=== PATIENT | male | born 1950 | race Asian ===

== ENCOUNTER 2019-02-08 05:29 | Day surgery (SDC) | payer MEDICARE, OTHER ==
--- NOTE | 2019-02-07 19:31 | Pre-op HX & Phy Repo 2 SIG ---
DATE OF ADMISSION: 02/08/2019 DATE OF SURGERY: February 08, 2019. PREOPERATIVE DIAGNOSIS: Dislocated intraocular lens, capsular complex, left eye. PROCEDURE TO BE PERFORMED: 1. Pars plana vitrectomy. 2. Reposition or removal and replacement of dislocated intraocular lens, left eye. BRIEF NOTE: This is a first [facility] admission for the patient who is a very nice 68-year-old gentleman with a dislocated lens in the left eye. He underwent cataract surgery on that side in 2008 with reasonably good vision. He noted blurred vision for roughly the last 6 weeks and was found to have a dislocation. He has a cataract on the right eye which has not been operated. PAST MEDICAL HISTORY: Remarkable for possible arthritis. He states that he is otherwise healthy. He had a colon resection in 2008 and this has been stable. MEDICATIONS: Celecoxib, atorvastatin, and gabapentin. ALLERGIES: He has no known allergies. PHYSICAL EXAMINATION: Best vision time of the visit was 20/30 -1 in the right eye and hand motions in the left with pressures of 16. The anterior segment exam of the right eye showed a cortical opacity and nuclear sclerotic cataract. The left eye showed a dislocated intraocular lens capsular complex. The lens was in the inferior 20% of the pupil. The zonular fibers were poorly supportive. Funduscopic exam of the right eye showed a posterior vitreous detachment. The left fundus showed a posterior vitreous separation. The retina nerve appeared benign. General physical examination will be performed by Dr. Mayer on arrival. ASSESSMENT: Dislocated intraocular lens, left eye. PLAN: The plan is to perform a pars plana vitrectomy with the reposition or removal and replacement of the lens. The risks and benefits of surgery gone over the patient with potential for infection, retinal detachment, glaucoma, remote possibility of loss of the eye. The risk of anesthesia was discussed. The patient understands and consents to the surgery, which will be performed on tomorrow morning. Bulmaro Chu M.D. DR: Anh JOB#: [id number] CC: BLANCHE
[2019-02-08] VITALS (11 sets, daily range): BP systolic 116–137; BP diastolic 65–86
[~2019-02-08] VITALS: Ht 168 cm; Wt 79.4 kg
[2019-02-08] MEDS ORDERED: Pred Forte 1% Opth Susp 1ml LEFT EYE SCH (06:00)
[2019-02-08] MEDS: Flurbiprofen 0.03% Opth Sol 2.5ml LEFT EYE SCH ×3 (06:18→06:45)
[2019-02-08] MEDS: Cyclopentolate 1% Opth Sol 2ml LEFT EYE SCH ×3 (06:18→06:44)
[2019-02-08] MEDS: Vigamox Opth Soln 3ml LEFT EYE SCH ×3 (06:18→06:45)
[2019-02-08] MEDS: Phenylephrine 2.5% Op 2ml Soln LEFT EYE SCH ×3 (06:18→06:44)
[2019-02-08] MEDS ORDERED: LEVETIRACETAM750 M1 ORAL (06:33)
[2019-02-08] MEDS ORDERED: AMLODIPINE BESY10 MG ORAL (06:33)
[2019-02-08] MEDS ORDERED: GABAPENTIN600 MG ORAL (06:33)
[2019-02-08] MEDS ORDERED: VASCEPA1 GM PO (06:33)
[2019-02-08] MEDS ORDERED: ATORVASTATIN CA20 MG ORAL (06:33)
[2019-02-08] MEDS ORDERED: CELEBREX200 MG ORAL (06:33)
[2019-02-08 06:37] LABS: ANION GAP 13 mmol/L (5-15); BLOOD UREA NITROGEN 12 mg/dL (7-18); CALCIUM 9.3 MG/DL (8.5-10.1); CARBON DIOXIDE 22 MMOL/L (21-32); CHLORIDE 104 MMOL/L (98-107); CREATININE 1.1 MG/DL (0.55-1.30); POTASSIUM 3.4 MMOL/L (3.5-5.1); SODIUM 139 MMOL/L (136-145)
[2019-02-08] MEDS ORDERED: Lidocaine 2% MPF 5ml Vial INJ ONE (07:12)
[2019-02-08] MEDS ORDERED: Kenalog-40 1ml Vial ONE (07:12)
[2019-02-08] MEDS ORDERED: Maxitrol Opth Oint 3.5gm ONE (07:12)
[2019-02-08] MEDS ORDERED: EPINEPHrine 1mg/1ml Amp ONE (07:12)
[2019-02-08] MEDS ORDERED: BSS 15ml BTL ONE ×3 (07:13→09:43)
[2019-02-08] MEDS ORDERED: Povidone-Iodine 5% opth solution ONE (07:13)
[2019-02-08] MEDS ORDERED: Dexamethasone 4mg/ml vial ONE (07:13)
[2019-02-08] MEDS ORDERED: BSS 500ml btl ONE (07:13)
[2019-02-08] MEDS ORDERED: Kenalog-10 5ml Inj ONE (07:13)
[2019-02-08] MEDS ORDERED: Tetracaine 0.5% Opth 4ml Soln ONE (07:14)
[2019-02-08] MEDS ORDERED: Sodium Hyaluronate 10 mg/ml 0.85ml ONE (07:14)
[2019-02-08] MEDS ORDERED: Bupivacaine 0.75% 30ml vial INJ ONE (07:14)
[2019-02-08] MEDS ORDERED: Midazolam 2mg/2ml Inj ONE (07:17)
[2019-02-08] MEDS ORDERED: Propofol 200mg/20ml IV ONE ×3 (07:17→10:25)
[2019-02-08 07:18] LABS: BASOPHILS % (AUTO) 1.3 % (0.0-2.0); HEMATOCRIT 42.8 % (42.0-52.0); HEMOGLOBIN 14.6 G/DL (14.2-18.0); LYMPHOCYTES % (AUTO) 42.6 % (20.0-45.0); MEAN CORPUSCULAR VOLUME 84 FL (80-99); NEUTROPHILS % (AUTO) 39.2 % (45.0-75.0); PLATELET COUNT 266 K/UL (150-450); RED BLOOD COUNT 5.08 M/UL (4.70-6.10); RED CELL DISTRIBUTION WIDTH 14.9 % (11.6-14.8); WHITE BLOOD COUNT 3.8 K/UL (4.8-10.8)
[2019-02-08] MEDS ORDERED: Sterile Water Irrig 1000ml IRRIG ONE (07:30)
[2019-02-08] MEDS ORDERED: fentaNYL 100 mcg/2 mL IV ONE (07:30)
[2019-02-08] MEDS ORDERED: LR 1000ml ONE (07:30)
[2019-02-08] MEDS ORDERED: NS Irrig 1000ml ONE (07:30)
--- NOTE | 2019-02-08 07:33 | Anethesia Preoperative Eval ---
Anesthesia Pre-op PMH/ROS General Date of Evaluation: Feb 08, 2019 Time of Evaluation: 07:30 Anesthesiologist: Tera ASA Score: ASA 2 Mallampati Score Class I : Soft palate, uvula, fauces, pillars visible Class II: Soft palate, uvula, fauces visible Class III: Soft palate, base of uvula visible Class IV: Only hard plate visible Mallampati Classification: Class II Surgeon: Vlad Diagnosis: Dislocated IOL L eye Surgical Procedure: L eye PPV Anesthesia History: none Family History: no anesthesia problems Allergies: Coded Allergies: IODINE (Verified Allergy, Unknown, 02/07/19) Uncoded Allergies: IV CONTRAST (Allergy, Unknown, 02/07/19) Medications: see eMAR Patient NPO?: Yes Past Medical History Cardiovascular: Reports: HTN; Denies: CAD, VA, valve dz, arrhythmia, other Gastrointestinal/Genitourinary: Reports: GERD; Denies: CRI, ESRD, other Neurologic/Psychiatric: Denies: dementia, CVA, depression/anxiety, TIA, other Endocrine: 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 Exam Physician Exam Last Vital Signs Date Time Temp Pulse Resp B/P (MAP) Pulse Ox O2 Delivery O2 Flow Rate FiO2 02/08/19 06:42 Room Air 02/08/19 06:28 98.0 65 18 128/86 96 Constitutional: NAD Neurologic: CN 2-12 intact Cardiovascular: RRR, no M/R/G Respiratory: CTA Gastrointestinal: S/NT/ND Airway Exam Mallampati Score: Class II MO: full Neck: stiff ROM: limited Teeth: missing Dentures: no upper, no lower Anesthesia Pre-op A/P Labs Hematology Test 02/08/19 06:00 White Blood Count 3.8 K/UL (4.8-10.8) L Red Blood Count 5.08 M/UL (4.70-6.10) Hemoglobin 14.6 G/DL (14.2-18.0) Hematocrit 42.8 % (42.0-52.0) Mean Corpuscular Volume 84 FL (80-99) Mean Corpuscular Hemoglobin 28.8 PG (27.0-31.0) Mean Corpuscular Hemoglobin Concent 34.2 G/DL (32.0-36.0) Red Cell Distribution Width 14.9 % (11.6-14.8) H Platelet Count 266 K/UL (150-450) Mean Platelet Volume 5.2 FL (6.5-10.1) L Neutrophils (%) (Auto) 39.2 % (45.0-75.0) L Lymphocytes (%) (Auto) 42.6 % (20.0-45.0) Monocytes (%) (Auto) 14.0 % (1.0-10.0) H Eosinophils (%) (Auto) 3.0 % (0.0-3.0) Basophils (%) (Auto) 1.3 % (0.0-2.0) Chemistry Test 02/08/19 06:00 Sodium Level 139 MMOL/L (136-145) Potassium Level 3.4 MMOL/L (3.5-5.1) L Chloride Level 104 MMOL/L (98-107) Carbon Dioxide Level 22 MMOL/L (21-32) Anion Gap 13 mmol/L (5-15) Blood Urea Nitrogen 12 mg/dL (7-18) Creatinine 1.1 MG/DL (0.55-1.30) Estimat Glomerular Filtration Rate > 60 mL/min (>60) Glucose Level 117 MG/DL (74-106) H Calcium Level 9.3 MG/DL (8.5-10.1) Risk Assessment & Plan Assessment: ASA 2 Plan: MAC with retrobulbar block Status Change Before Surgery: No Pre-Antibiotics Drug: none Mundo Haley MD Feb 08, 2019 07:33
--- NOTE | 2019-02-08 07:53 | Pre-Procedure Note/Attestation ---
Pre-Procedure Note/Attestation Complete Prior to Procedure Planned Procedure: left Procedure Narrative: PPV, removal of dislocated IOL, insertion of posterior chamber lens LEFT eye Indications for Procedure Pre-Operative Diagnosis: Loss of vision LEFT eye Attestation I attest that I discussed the nature of the procedure; its benefits; risks and complications; and alternatives (and the risks and benefits of such alternatives ), prior to the procedure, with the patient (or the patient's legal quality audit representative). I attest that, if there was a reasonable possibility of needing a blood transfusion, the patient (or the patient's legal quality audit representative) was given the [facility] standardized written summary, pursuant to the [place] Blood Safety Act ([place] Health and Safety Code # 1645, as amended). I attest that I re-evaluated the patient just prior to the surgery and that there has been no change in the patient's H&P, except as documented below: Bulmaro Chu MD Feb 08, 2019 07:53
[2019-02-08] MEDS ORDERED: LR 1000ml 1,000 ML IVLG SCH (08:27)
[2019-02-08] MEDS ORDERED: DiphenhydrAMINE 50mg/ml Inj IVP PRN (08:30)
[2019-02-08] MEDS ORDERED: fentaNYL 100 mcg/2 mL IV PRN (08:30)
[2019-02-08] MEDS ORDERED: Carbachol 0.01% Op Soln 1.5ml vial ONE (08:36)
--- NOTE | 2019-02-08 10:15 | Immediate Post-Op Evaluation ---
Immediate Post-Op Evalulation Immediate Post-Op Evalulation Procedure: L eye PPV removal and replacement of dyslocated IOL Date of Evaluation: Feb 08, 2019 Time of Evaluation: 10:14 IV Fluids: 600 Blood Products: none Estimated Blood Loss: min Urinary Output: none Blood Pressure Systolic: 126 Blood Pressure Diastolic: 83 Pulse Rate: 67 Respiratory Rate: 20 O2 Sat by Pulse Oximetry: 99 Temperature (Fahrenheit): 97.4 Pain Score (1-10): 1 Nausea: No Vomiting: No Complications none Patient Status: reacts, patent Hydration Status: adequate Mundo Haley MD Feb 08, 2019 10:15
--- NOTE | 2019-02-08 10:30 | Brief Operative Note ---
Immediate Post Operative Note Operative Note Chief Complaint: Loss of vision Left eye Pre-op Diagnosis: Dislocated IOL LEFT eye Procedure: PPV, Removal of dislocated IOL, Suture in PC chamber lens LEFT eye Post-op Diagnosis: same as pre-op Surgeon: kitty Anesthesiologist: rosette Anesthesia: general Specimen: none Complications: none Condition: stable Fluids: Per anesthesia Estimated Blood Loss: none Drains: none Implant(s) used?: Yes - 12.5 D PC IOl Bulmaro Chu MD Feb 08, 2019 10:30
--- NOTE | 2019-02-08 11:57 | 48 Hour Post Anesthesia Eval ---
Post Anesthesia Evaluation Procedure: L eye PPV removal and replacement of dyslocated IOL Date of Evaluation: Feb 08, 2019 Time of Evaluation: 11:56 Blood Pressure Systolic: 116 0: 75 Pulse Rate: 68 Respiratory Rate: 18 Temperature (Fahrenheit): 97.6 O2 Sat by Pulse Oximetry: 98 Airway: patent Nausea: No Vomiting: No Pain Intensity: 1 Hydration Status: adequate Cardiopulmonary Status: stable Mental Status/LOC: patient returned to baseline Follow-up Care/Observations: n/a Post-Anesthesia Complications: none Follow-up care needed: ready to discharge Mundo Haley MD Feb 08, 2019 11:57
[2019-02-08] MEDS ORDERED: HYDROcodone/Acetamin 5/325 tab ORAL PRN (14:01)
--- NOTE | 2019-02-08 14:57 | Cardiology Report ---
APPROVED REPORT EKG Measurement Heart [id number] Normal sinus rhythm Normal ECG
--- NOTE | 2019-02-08 16:30 | Pre-op HX & Phy Repo 2 SIG ---
DATE OF ADMISSION: 02/08/2019 PRESURGICAL INTERNAL MEDICINE HISTORY AND PHYSICAL: REASON FOR EVALUATION: I was asked by Dr. Bulmaro Chu to see this 68-year-old Nepali-speaking male, who is going for elective surgery on the left eye. PAST MEDICAL HISTORY/REVIEW OF SYSTEMS: Remarkable for hypertension, absence epilepsy, hyperlipidemia. No history of stroke. No history of diabetes. No GI bleeding or hepatitis. No renal failure. No respiratory problem. No thyroid problem. No heart attack. SURGICAL HISTORY: Rectal cancer, fracture of the ankle, cataract surgery, lumbar spine L4-L5 disc surgery. FAMILY HISTORY: Mother from heart attack. Father - hypertension, stroke. ALLERGIES: To contrast. MEDICATIONS: Gabapentin, amlodipine, atorvastatin, Celebrex, , triamcinolone cream, Vascepa, Voltaren cream. HABITS: Tobacco use for 30 years approximately half a pack more than 10 years ago. No alcohol. No street drugs. All information obtained at bedside, son translated. PHYSICAL EXAMINATION: GENERAL: Alert. VITAL SIGNS: Blood pressure 129/86, temperature 98, pulse 65 regular, respirations 18, O2 saturation 96% on room air. SKIN: Dry, clear. No rashes or ulcers. LYMPHATICS: Lymph nodes not enlarged. HEENT: Head normocephalic and atraumatic. Both ears clear, no discharge. Eyes, full description per Dr. Chu. Mouth, clear and moist. NECK: Supple. No jugular vein distention. Carotids artery +2. Trachea midline. CHEST: No deformity or asymmetry. LUNGS: Clear to auscultation, percussion. HEART: Heart sounds distant. Heart rate regular. No murmur. No S3 or S4. ABDOMEN: Soft. Obese. No palpable mass. No rebound. EXTREMITIES: No edema. No varicose vein. No calf tenderness. GENITOURINARY TRACT: No dysuria. No CVA tenderness. NERVOUS SYSTEM: No asymmetry. No tremors. ECG, normal sinus rhythm, 66 per minute, normal ECG. The patient is NPO since 3 p.m. yesterday. LABORATORY DATA: Lab work pending. IMPRESSION: 1. Dislocated lens, left eye. 2. Hypertension, controlled. 3. Absence syncope type of attack. 4. History of rectal CA. PLAN: Pars plana vitrectomy. Removal and replacement of intraocular lens, left eye per Dr. Bulmaro Chu. CONCLUSION: The patient has history of hypertension, which is presently controlled on medication. The patient has some kind of absent attack with loss of conscious. No urine or fecal incontinence. No seizures type of attacks. The patient did not eat or drink from 3 p.m. yesterday and his EKG is normal. Laboratory work pending. The patient's condition optimized for surgery. Thank you very much, Dr. Chu, for privilege to participate in presurgical care of this interesting patient. Elen Mayer M.D. DR: CAMERON JOB#: [id number] CC:
--- NOTE | 2019-02-08 19:00 | Operative Note - Dictated ---
DATE OF OPERATION: 02/08/2019 POSTOPERATIVE DIAGNOSIS: Dislocated intraocular lens, left eye. PROCEDURES PERFORMED: 1. Pars plana vitrectomy. 2. Removal of dislocated intraocular lens. 3. Suture in posterior chamber lens, left eye. SURGEON: Bulmaro Chu M.D. PARTS DRIVER: None. ANESTHESIA: LMA general. JUSTIFICATION FOR SURGERY: This 68-year-old gentleman, underwent cataract surgery several years ago and noted a sudden loss of vision in the left eye. He was found to have a dislocated one-piece silicone lens. BRIEF NOTE: The patient was brought to the operative room, placed on operating room table in supine position. After a time-out was performed and agreed upon by the staff, general LMA anesthesia was induced by Dr. Haley. A 3 mL retrobulbar block and a small [place] Lint block were given to limit intraoperative anesthesia and postoperative pain. The patient was then prepped and draped in the normal manner. A lid speculum into the left eye. A 190 degree superior peritomy was made with relaxation incisions at 8:30 and 3:30. Using a 23-gauge trocar system, cannulas were placed in all except infranasal quadrant. Infusion was secured inferotemporally. The eye was examined and the dislocated lens had fallen further into the posterior pole with no zonular support. It was noted that the lens was a single, was a one-piece solid silicone lens without haptics that would be suitable for varying in the sclera. It was therefore elected to completely remove this lens and its surrounding capsule and to replace with a suture in posterior chamber lens. Vitrectomy was performed during the complete removal of the central core, vitreous and posterior hyaloid and caring this out peripherally leaving a small vitreous skirt. The lens was noted to drop posteriorly. The vitreous cutter was used to gently remove capsular remnants from the lens in the mid vitreous cavity. Using intraocular and gripping forceps, the lens was engaged just nasal to the optic nerve and brought anteriorly into the anterior chamber, which had been coated with Healon. No problems were encountered. Miochol was used to slightly constrict the pupil. A 10-0 Prolene suture, with a straight needle was cut in half and points were marked on the sclera at the 3 and 9 o'clock position, roughly 2 mm apart and 2 mm posterior to the limbus. MVR blade was used to perform initial openings and straight needle was passed through the small scleral opening to be met in the mid pupillary region behind the lens implant by a bent 27-gauge needle. This was passed through with both halves of the Prolene being done. A superior groove was then cut with the 69 [place] Devil blade followed by entry into the anterior chamber with a keratome. The shelved incision was 7.5 mm end to end. When this was accomplished, the pressure was lowered and the intra-ocular lens engaged with a smooth forceps and removed from the eye. There were no problems encountered in this maneuver. The two sutures were then engaged with a Sinskey hook and pulled out of the eye at the 12 o'clock position. These were cut. A 12.5 diopter lens, previously calculated with eylets on the haptics was brought into the field and each haptic was secured with an end of the double Prolene suture. The knot was rotated out of the eye. The lens was placed into the eye and the sutures pulled up and secured to form a central positioning of the lens without rotation. A 10-0 nylon suture was then used to close the superior wound. A total of 7 interrupted sutures were used with the knots buried. Once this maneuver was completed, the ends of the sutures holding the lens were tied into position and the knots were rotated into the globe. The lens was noted to center nicely. At this juncture, a small remnants of hemorrhage were removed from the eye with a posterior vitrector as well as the remaining Healon in the anterior chamber. Scleral depression was done and no peripheral breaks, tears, or detachments were seen. A small amount of additional Miochol was injected to constrict the pupil. Conjunctiva was pulled up and secured with 6 and 9 with 6-0 plain catgut. Subconjunctival Decadron and gentamicin were then injected and topical Maxitrol ointment and moxifloxacin drops were instilled. The eye was patched and shielded and the patient was taken to recovery in excellent condition, there were no complications. Bulmaro Chu M.D. DR: GILBERT JOB#: [id number] CC: Bulmaro Chu M.D.; Fax#: [phone] [facility]
== END 2019-02-08 11:45 | disposition home or self-care (01) ==
LOC: SUR 05:29
DX: T85.22XA Displacement of intraocular lens, initial encounter (principal); H53.132 Sudden visual loss, left eye; H54.62 Unqualified visual loss, left eye, normal vision right eye; X58.XXXA Exposure to other specified factors, initial encounter; Y92.9 Unspecified place or not applicable; I10 Essential (primary) hypertension; K21.9 Gastro-esophageal reflux disease without esophagitis; E11.9 Type 2 diabetes mellitus without complications; M19.90 Unspecified osteoarthritis, unspecified site; Z91.041 Radiographic dye allergy status; E78.5 Hyperlipidemia, unspecified; Z85.048 Personal history of other malignant neoplasm of rectum, rectosigmoid junction, and anus; Z82.3 Family history of stroke; Z82.49 Family history of ischemic heart disease and other diseases of the circulatory system; Z79.899 Other long term (current) drug therapy
CPT/HCPCS: 36415; 66852; 66986; 80048; 85025; 93005; J0171; J1100; J2250; J2704; J3010; J3301; J3470; J3490; V2632; 94003; 94150

== ENCOUNTER 2019-03-29 05:48 | Day surgery (SDC) | payer MEDICARE, OTHER ==
--- NOTE | 2019-03-28 22:30 | Pre-op HX & Phy Repo 2 SIG ---
DATE OF ADMISSION: 03/29/2019 PREOPERATIVE DIAGNOSIS: Iris capture of intra-ocular lens, left eye. BRIEF NOTE: This is a second [place] admission for this patient, 69-year-old gentleman, who underwent vitrectomy surgery with a secondary lens implant on 02/08/2019 after a prior cataract surgery in 2008 that resulted in dislocation of the iris and lens complex. The lens was of the solid silicone variety and could not be rescued, necessitating the placement of a new a posterior chamber lens. He did well initially, but came in with capture of the nasal portion of the lens by the anterior iris. Because of this, he was treated with pilocarpine drops and ultimately dilation and face-down positioning which all failed to reposition the lens. He is admitted for brief procedure to reposition the lens behind the pupil. PAST MEDICAL HISTORY: Remarkable for colon resection surgery in 2008. He is otherwise stable except for mild hypertension as well. MEDICATIONS: He is on atorvastatin, amlodipine, and gabapentin. ALLERGIES: He has no known allergies. PHYSICAL EXAMINATION: Best vision at the time of the visit was 20/25 in the right eye and 20/40 in the left with pressures of 16 and 17. The anterior segment on the right was quiet with early cataract. The left showed nasal capture of posterior chamber lens. The lens was in otherwise reasonable position sutured to the sclera. Funduscopic examination of both eyes was benign without evidence of retinal tears or detachment. ASSESSMENT: Iris capture of posterior chamber lens, left eye. PLAN: The plan is to perform a brief maneuver with reposition of the lens and constriction of the pupil. This to be done tomorrow. The risks and benefits of surgery were gone over with the patient including potential for infection, dislocation of the lens, and remote possibility of a hemorrhage or retinal detachment. He understands and consents. Procedure to be performed tomorrow. Bulmaro Chu M.D. DR: ANNA JOB#: [id number] CC: BLANCHE
[2019-03-29] VITALS (12 sets, daily range): BP systolic 118–143; BP diastolic 77–88
[~2019-03-29] VITALS: Ht 167.6 cm; Wt 83.5 kg
[~2019-03-29 05:48] MED LIST: AMLODIPINE BESY10 MG ORAL; ATORVASTATIN CA20 MG ORAL; CELEBREX200 MG ORAL; GABAPENTIN600 MG ORAL; LEVETIRACETAM750 M1 ORAL; Pred Forte 1% Opth Susp 1ml LEFT EYE ONE; VASCEPA1 GM PO
[2019-03-29] MEDS: Flurbiprofen 0.03% Opth Sol 2.5ml LEFT EYE SCH ×3 (06:18→06:38)
[2019-03-29] MEDS: Vigamox Opth Soln 3ml LEFT EYE SCH ×3 (06:18→06:38)
[2019-03-29] MEDS: Phenylephrine 2.5% Op 2ml Soln LEFT EYE SCH ×3 (06:18→06:38)
[2019-03-29] MEDS: Cyclopentolate 1% Opth Sol 2ml LEFT EYE SCH ×3 (06:19→06:38)
--- NOTE | 2019-03-29 06:34 | NUR ---
iv was started by ame delong r.n. at 0630 am
[2019-03-29] MEDS ORDERED: Lidocaine 2% MPF 5ml Vial INJ ONE ×2 (07:03→07:13)
[2019-03-29] MEDS ORDERED: EPINEPHrine 1mg/1ml Amp ONE (07:03)
[2019-03-29 07:04] LABS: EOSINOPHILS % (AUTO) 2.7 % (0.0-3.0); HEMATOCRIT 42.4 % (42.0-52.0); HEMOGLOBIN 13.9 G/DL (14.2-18.0); LYMPHOCYTES % (AUTO) 39.5 % (20.0-45.0); MEAN CORPUSCULAR VOLUME 89 FL (80-99); MONOCYTES % (AUTO) 13.9 % (1.0-10.0); NEUTROPHILS % (AUTO) 42.8 % (45.0-75.0); PLATELET COUNT 293 K/UL (150-450); RED BLOOD COUNT 4.74 M/UL (4.70-6.10); WHITE BLOOD COUNT 3.9 K/UL (4.8-10.8)
[2019-03-29] MEDS ORDERED: Polysporin Opth Oint 3.5gm ONE (07:04)
[2019-03-29] MEDS ORDERED: Tetracaine 0.5% Opth 4ml Soln ONE (07:05)
[2019-03-29] MEDS ORDERED: BSS 500ml btl ONE (07:05)
[2019-03-29] MEDS ORDERED: Bupivacaine 0.75% 30ml vial INJ ONE (07:05)
[2019-03-29] MEDS ORDERED: Povidone-Iodine 5% opth solution ONE (07:05)
[2019-03-29] MEDS ORDERED: BSS 15ml BTL ONE (07:05)
[2019-03-29] MEDS ORDERED: Sodium Hyaluronate 10 mg/ml 0.85ml ONE (07:06)
[2019-03-29 07:08] LABS: ANION GAP 8 mmol/L (5-15); BLOOD UREA NITROGEN 9 mg/dL (7-18); CALCIUM 9.3 MG/DL (8.5-10.1); CARBON DIOXIDE 29 MMOL/L (21-32); CHLORIDE 106 MMOL/L (98-107); CREATININE 1.1 MG/DL (0.55-1.30); POTASSIUM 3.9 MMOL/L (3.5-5.1); SODIUM 143 MMOL/L (136-145)
[2019-03-29] MEDS ORDERED: Dexamethasone 4mg/ml vial ONE (07:14)
[2019-03-29] MEDS ORDERED: Midazolam 2mg/2ml Inj ONE (07:21)
[2019-03-29] MEDS ORDERED: Propofol 200mg/20ml IV ONE (07:21)
--- NOTE | 2019-03-29 07:26 | Anethesia Preoperative Eval ---
Anesthesia Pre-op PMH/ROS General Date of Evaluation: Mar 29, 2019 Time of Evaluation: 07:26 Anesthesiologist: Derick ASA Score: ASA 3 Mallampati Score Class I : Soft palate, uvula, fauces, pillars visible Class II: Soft palate, uvula, fauces visible Class III: Soft palate, base of uvula visible Class IV: Only hard plate visible Mallampati Classification: Class II Surgeon: Vlad Diagnosis: Iris Dislocation OS Surgical Procedure: Iris Reposition OS Anesthesia History: none Family History: no anesthesia problems Allergies: Coded Allergies: IODINATED CONTRAST- ORAL AND IV DYE (Verified Allergy, Severe, rash, hives , 03/28/19) Medications: see eMAR Patient NPO?: Yes Past Medical History Cardiovascular: Reports: HTN, other - Syncope Gastrointestinal/Genitourinary: Reports: GERD Endocrine: Reports: DM HEENT: Reports: cataract (L), cataract (R) Hematology/Immune: Reports: other - Rectal CA PSxH Narrative: Eye Sx 02/22 OS Anesthesia Pre-op Phys. Exam Physician Exam Last Vital Signs Date Time Temp Pulse Resp B/P (MAP) Pulse Ox O2 Delivery O2 Flow Rate FiO2 03/29/19 06:35 Room Air 03/29/19 06:25 98.6 75 18 143/88 96 Constitutional: NAD Neurologic: CN 2-12 intact Cardiovascular: RRR Respiratory: CTA Gastrointestinal: S/NT/ND Airway Exam Mallampati Score: Class II MO: full ROM: full Teeth: intact Anesthesia Pre-op A/P Labs Hematology Test 03/29/19 06:30 White Blood Count 3.9 K/UL (4.8-10.8) L Red Blood Count 4.74 M/UL (4.70-6.10) Hemoglobin 13.9 G/DL (14.2-18.0) L Hematocrit 42.4 % (42.0-52.0) Mean Corpuscular Volume 89 FL (80-99) Mean Corpuscular Hemoglobin 29.3 PG (27.0-31.0) Mean Corpuscular Hemoglobin Concent 32.8 G/DL (32.0-36.0) Red Cell Distribution Width 13.0 % (11.6-14.8) Platelet Count 293 K/UL (150-450) Mean Platelet Volume 5.3 FL (6.5-10.1) L Neutrophils (%) (Auto) 42.8 % (45.0-75.0) L Lymphocytes (%) (Auto) 39.5 % (20.0-45.0) Monocytes (%) (Auto) 13.9 % (1.0-10.0) H Eosinophils (%) (Auto) 2.7 % (0.0-3.0) Basophils (%) (Auto) 1.0 % (0.0-2.0) Chemistry Test 03/29/19 06:30 Sodium Level 143 MMOL/L (136-145) Potassium Level 3.9 MMOL/L (3.5-5.1) Chloride Level 106 MMOL/L (98-107) Carbon Dioxide Level 29 MMOL/L (21-32) Anion Gap 8 mmol/L (5-15) Blood Urea Nitrogen 9 mg/dL (7-18) Creatinine 1.1 MG/DL (0.55-1.30) Estimat Glomerular Filtration Rate > 60 mL/min (>60) Glucose Level 116 MG/DL (74-106) H Calcium Level 9.3 MG/DL (8.5-10.1) Risk Assessment & Plan Assessment: ASA 3 Plan: GA Status Change Before Surgery: Ramón Hopkins MD Mar 29, 2019 07:26
[2019-03-29] MEDS ORDERED: LR 1000ml 1,000 ML IVLG SCH ×3 (07:28→07:43)
[2019-03-29] MEDS ORDERED: NS Irrig 1000ml ONE (07:30)
[2019-03-29] MEDS ORDERED: LR 1000ml ONE (07:30)
[2019-03-29] MEDS ORDERED: Labetalol 5mg/ml 20ml vial IV PRN ×2 (07:30)
[2019-03-29] MEDS ORDERED: oxyCODONE HCL/Acetaminophen 5/325mg ORAL PRN ×2 (07:30)
[2019-03-29] MEDS ORDERED: HYDROcodone/Acetamin 5/325 tab ORAL PRN ×3 (07:30→07:45)
[2019-03-29] MEDS ORDERED: Midazolam 2mg/2ml Inj IVP PRN ×2 (07:30)
[2019-03-29] MEDS ORDERED: Metoclopramide 10mg/2ml Inj IVP PRN ×2 (07:30)
[2019-03-29] MEDS ORDERED: Ketorolac 30mg Inj IV PRN ×4 (07:30)
[2019-03-29] MEDS ORDERED: Lidocaine 1% MPF 10mg/ml 5ml ONE (07:30)
[2019-03-29] MEDS ORDERED: Sterile Water Irrig 1000ml IRRIG ONE (07:30)
[2019-03-29] MEDS ORDERED: LORazepam Inj 2mg/ml 1ml IV PRN ×2 (07:30)
[2019-03-29] MEDS ORDERED: DiphenhydrAMINE 50mg/ml Inj IVP PRN ×2 (07:30)
[2019-03-29] MEDS ORDERED: Meperidine 50mg/ml Inj(FOR RIGORS ONLY) IVP PRN ×2 (07:30)
[2019-03-29] MEDS ORDERED: fentaNYL 100 mcg/2 mL IV PRN ×2 (07:30)
[2019-03-29] MEDS ORDERED: HYDROcodone/Acetamin 7.5/325 tab ORAL PRN ×2 (07:30)
[2019-03-29] MEDS ORDERED: Hydromorphone 0.5mg/0.5ml inj IVP PRN ×2 (07:30)
[2019-03-29] MEDS ORDERED: Atropine Sulfate 0.4mg/ml inj IVP PRN ×2 (07:30)
--- NOTE | 2019-03-29 07:43 | Pre-Procedure Note/Attestation ---
Pre-Procedure Note/Attestation Complete Prior to Procedure Planned Procedure: left Procedure Narrative: Reposition of iris over dislocated IOL OS Indications for Procedure Pre-Operative Diagnosis: Iris capture of IOL OS Attestation I attest that I discussed the nature of the procedure; its benefits; risks and complications; and alternatives (and the risks and benefits of such alternatives ), prior to the procedure, with the patient (or the patient's legal solar sales representative). I attest that, if there was a reasonable possibility of needing a blood transfusion, the patient (or the patient's legal solar sales representative) was given the [facility] standardized written summary, pursuant to the [place] Blood Safety Act ([place] Health and Safety Code # 1645, as amended). I attest that I re-evaluated the patient just prior to the surgery and that there has been no change in the patient's H&P, except as documented below: Bulmaro Chu MD Mar 29, 2019 07:43
--- NOTE | 2019-03-29 07:49 | Immediate Post-Op Evaluation ---
Immediate Post-Op Evalulation Immediate Post-Op Evalulation Procedure: Iris Reposition OS Date of Evaluation: Mar 29, 2019 Time of Evaluation: 08:32 IV Fluids: 500 LR Blood Products: 0 Estimated Blood Loss: 1 Urinary Output: 0 Blood Pressure Systolic: 127 Blood Pressure Diastolic: 53 Pulse Rate: 67 Respiratory Rate: 16 O2 Sat by Pulse Oximetry: 97 Temperature (Fahrenheit): 97.8 Pain Score (1-10): 2 Nausea: No Vomiting: No Complications 0 Patient Status: awake, reacts, patent, none Hydration Status: adequate Ramón Sepulveda MD Mar 29, 2019 07:49
--- NOTE | 2019-03-29 07:52 | 48 Hour Post Anesthesia Eval ---
Post Anesthesia Evaluation Procedure: Iris Reposition OS Date of Evaluation: Mar 29, 2019 Time of Evaluation: 10:34 Blood Pressure Systolic: 126 0: 81 Pulse Rate: 67 Respiratory Rate: 18 Temperature (Fahrenheit): 98.2 O2 Sat by Pulse Oximetry: 96 Airway: patent Nausea: No Vomiting: No Pain Intensity: 2 Hydration Status: adequate Cardiopulmonary Status: Stable Mental Status/LOC: patient returned to baseline Follow-up Care/Observations: 0 Post-Anesthesia Complications: 0 Follow-up care needed: ready to discharge Ramón Sepulveda MD Mar 29, 2019 07:52
[2019-03-29] MEDS ORDERED: Acetylcholine Injection (OR) ONE (07:57)
--- NOTE | 2019-03-29 08:40 | Brief Operative Note ---
Immediate Post Operative Note Operative Note Pre-op Diagnosis: Iris capture of IOL OS Procedure: Reposition of Iris capture and instillation of Miochol Left eye Post-op Diagnosis: same as pre-op Surgeon: kitty Anesthesiologist: merlin Anesthesia: MAC Specimen: none Complications: none Condition: stable Fluids: per anesthesia Estimated Blood Loss: none Drains: none Implant(s) used?: No Bulmaro Chu MD Mar 29, 2019 08:40
[2019-03-29] MEDS ORDERED: Pilocarpine 1% Opth 15ml Soln BOTH EYES SCH (09:00)
--- NOTE | 2019-03-29 16:30 | Operative Note - Dictated ---
DATE OF OPERATION: 03/29/2019 PREOPERATIVE DIAGNOSIS: Iris capture of the intraocular lens, left eye. POSTOPERATIVE DIAGNOSIS: Iris capture of the intraocular lens, left eye. PROCEDURES PERFORMED: 1. Reposition of iris capture. 2. Instillation of Miochol, left eye. SURGEON: Bulmaro Chu M.D. EXHIBIT CLEANER: None. ANESTHESIA: Local with sedation. ANESTHESIOLOGIST: Ramón Sepulveda M.D. JUSTIFICATION FOR SURGERY: This 69-year-old gentleman underwent placement of a secondary intra-ocular lens six weeks ago and was doing fine until there was nasal capture of the intraocular lens by iris. He was admitted for repositioning of the iris and intraocular lens. BRIEF NOTE: The patient was brought to the operative room and placed on the OR table in supine position. After a time-out was performed and agreed upon by the staff, an initial monitoring secured by anesthesia, retrobulbar, and a Van Lint blocks were given in the standard way. When the blocks taken effect, he was prepped and draped in normal manner. A lid speculum was inserted into the left eye. Using a Superblade, the anterior chamber was entered at the limbus at the 3 o'clock position. A membrane pick was used to gently undermine the iris at the 11 o'clock position and gently rotate counter-clockwise to tuck the implant beneath the iris to round the pupil. This went without complication. Miochol solution was then instilled in the same wound in order to constrict the iris nicely. No complications were encountered and the lens remained in perfect position. The instruments were removed from the eye. The shelved wound at 3 o'clock was noted to be self-sealing and no suture was applied. Subconjunctival Decadron and gentamicin were then injected and topical moxifloxacin drops, pilocarpine 1% drops, and Maxitrol ointments were instilled. The eye was patched and shielded and the patient was taken to recovery in excellent condition. There were no complications. Bulmaro Chu M.D. DR: ANNA JOB#: [id number] CC: Bulmaro Chu M.D.; Fax#: [phone]
== END 2019-03-29 09:55 | disposition home or self-care (01) ==
LOC: SUR 05:48
DX: T85.22XA Displacement of intraocular lens, initial encounter (principal); X58.XXXA Exposure to other specified factors, initial encounter; Y92.9 Unspecified place or not applicable; I10 Essential (primary) hypertension; Z79.899 Other long term (current) drug therapy; K21.9 Gastro-esophageal reflux disease without esophagitis; E11.9 Type 2 diabetes mellitus without complications; Z85.048 Personal history of other malignant neoplasm of rectum, rectosigmoid junction, and anus; Z91.041 Radiographic dye allergy status
CPT/HCPCS: 36415; 66680; 80048; 85025; J1100; J2250; J2704; J3470; J3490; 94003; 94150

== ENCOUNTER 2019-06-05 05:38 | Day surgery (SDC) | payer MEDICARE, OTHER ==
--- NOTE | 2019-06-02 13:15 | Pre-op HX & Phy Repo 2 SIG ---
DATE OF ADMISSION: 06/05/2019 DATE OF SURGERY: June 05, 2019. PREOPERATIVE DIAGNOSIS: IOL capture by iris, LEFT eye. BRIEF NOTE: This is the third [place] admission for the patient, who is a very nice 69-year-old gentleman, who initially presented with a dislocated intraocular lens that required vitrectomy, removal, and placement of a secondary lens implant. It was felt that there was an element of pseudoexfoliation. The removal and replacement of the lens went very successfully, but he has shown a tendency possibly due to his iris to capture the secondary lens implant. He was admitted initially several weeks ago for repositioning of the lens and placement of pilocarpine, which was successful, but after a time, the capture recurred. He is admitted now for a procedure in which we will place Prolene sutures spanning across the eye to hold the lens in place and tract the iris over-read. This will allow for correction of the pupillary capture without actual removal and replacement of the implant. PAST OCULAR HISTORY: Also remarkable for cataract in the right eye. MEDICAL HISTORY: Remarkable for colon resection and previous hypertension. MEDICATIONS: He is on amlodipine, atorvastatin, celecoxib, gabapentin, and triamcinolone. ALLERGIES: He has no known allergies. PHYSICAL EXAMINATION: Best vision at the time of admission was 20/20- in the right eye, 20/50 in the left. The anterior segment on the right was quiet except for a cortical nuclear cataract. The left eye showed capture of the lens implant by the nasal iris. There was iridodonesis or floppy iris. Funduscopic examination of the right eye showed a posterior vitreous detachment. The left eye was benign with a normal cup. The pressures were 18 bilaterally. 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 PLAN: The plan is to do the procedure as planned, which involved a vitrectomy with placement of suture behind the iris and the anterior to the lens implant. The risks and benefits of the surgery were gone over with the patient with potential for infection, hemorrhage, dislocation of the lens implant, and the possibility that the procedure will not prevent iris capture and he will subsequently need revision. Bulmaro Chu M.D. DR: RANDA JOB#: [id number] CC: BLANCHE
[2019-06-05] VITALS (9 sets, daily range): BP systolic 144–167; BP diastolic 86–100
[~2019-06-05] VITALS: Ht 167.6 cm; Wt 79.4 kg
[~2019-06-05 05:38] MED LIST changes: -Pred Forte 1% Opth Susp 1ml LEFT EYE ONE
[2019-06-05] MEDS ORDERED: Cyclopentolate 1% Opth Sol 2ml ONE (06:07)
[2019-06-05] MEDS ORDERED: Flurbiprofen 0.03% Opth Sol 2.5ml ONE (06:07)
[2019-06-05] MEDS ORDERED: Phenylephrine 2.5% Op 2ml Soln ONE (06:08)
[2019-06-05] MEDS ORDERED: Vigamox Opth Soln 3ml ONE (06:08)
[2019-06-05] MEDS ORDERED: IRON 100 PLUS1 EACH PO (06:50)
[2019-06-05] MEDS: Phenylephrine 2.5% Op 2ml Soln LEFT EYE SCH ×3 (06:56→07:06)
[2019-06-05] MEDS: Vigamox Opth Soln 3ml LEFT EYE SCH ×3 (06:56→07:06)
[2019-06-05] MEDS: Flurbiprofen 0.03% Opth Sol 2.5ml LEFT EYE SCH ×3 (06:56→07:06)
[2019-06-05] MEDS: Cyclopentolate 1% Opth Sol 2ml LEFT EYE SCH ×3 (06:56→07:06)
[2019-06-05 07:03] LABS: ANION GAP 12 mmol/L (5-15); BLOOD UREA NITROGEN 9 mg/dL (7-18); CALCIUM 8.7 MG/DL (8.5-10.1); CARBON DIOXIDE 24 MMOL/L (21-32); CHLORIDE 108 MMOL/L (98-107); CREATININE 0.9 MG/DL (0.55-1.30); POTASSIUM 3.9 MMOL/L (3.5-5.1); SODIUM 144 MMOL/L (136-145)
[2019-06-05 07:08] LABS: HEMOGLOBIN 13.4 G/DL (14.2-18.0); MEAN CORPUSCULAR VOLUME 88 FL (80-99); PLATELET COUNT 283 K/UL (150-450); RED BLOOD COUNT 4.66 M/UL (4.70-6.10); RED CELL DISTRIBUTION WIDTH 12.2 % (11.6-14.8); WHITE BLOOD COUNT 2.8 K/UL (4.8-10.8)
[2019-06-05] MEDS ORDERED: Kenalog-40 1ml Vial ONE (07:20)
[2019-06-05] MEDS ORDERED: EPINEPHrine 1mg/1ml Amp ONE (07:20)
[2019-06-05] MEDS ORDERED: Lidocaine 2% MPF 5ml Vial INJ ONE (07:21)
[2019-06-05] MEDS ORDERED: BSS 500ml btl ONE (07:21)
[2019-06-05] MEDS ORDERED: Povidone-Iodine 5% opth solution ONE (07:21)
[2019-06-05] MEDS ORDERED: BSS 15ml BTL ONE (07:21)
[2019-06-05] MEDS ORDERED: Maxitrol Opth Susp 5ml ONE (07:21)
[2019-06-05] MEDS ORDERED: Dexamethasone 4mg/ml vial ONE (07:21)
[2019-06-05] MEDS ORDERED: Kenalog-10 5ml Inj ONE (07:21)
[2019-06-05] MEDS ORDERED: Bupivacaine 0.75% 30ml vial INJ ONE (07:22)
[2019-06-05] MEDS ORDERED: Tetracaine 0.5% Opth 4ml Soln ONE (07:22)
[2019-06-05] MEDS ORDERED: Sodium Hyaluronate 10 mg/ml 0.85ml ONE (07:22)
[2019-06-05] MEDS ORDERED: LR 1000ml 1,000 ML IVLG SCH (07:26)
--- NOTE | 2019-06-05 07:26 | Anethesia Preoperative Eval ---
Anesthesia Pre-op PMH/ROS General Date of Evaluation: Jun 05, 2019 Anesthesiologist: Jose ASA Score: ASA 3 Mallampati Score Class I : Soft palate, uvula, fauces, pillars visible Class II: Soft palate, uvula, fauces visible Class III: Soft palate, base of uvula visible Class IV: Only hard plate visible Mallampati Classification: Class II Surgeon: Vlad Diagnosis: Left eye dislocated lens Surgical Procedure: Left eye vitrectomy Anesthesia History: none Family History: no anesthesia problems Allergies: Coded Allergies: IODINATED CONTRAST MEDIA (Verified Allergy, Severe, rash, hives, 06/05/19) Medications: see eMAR Patient NPO?: Yes NPO Date: Jun 04, 2019 NPO Time: 22:00 Past Medical History Cardiovascular: Reports: HTN, other - HLD; Denies: CAD, MD, valve dz, arrhythmia Pulmonary: Denies: asthma, COPD, STEFFANY, other Gastrointestinal/Genitourinary: Reports: other - rectal cancer; Denies: GERD, CRI, ESRD Neurologic/Psychiatric: 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 Exam Physician Exam Last Vital Signs Date Time Temp Pulse Resp B/P (MAP) Pulse Ox O2 Delivery O2 Flow Rate FiO2 06/05/19 06:58 Room Air 06/05/19 06:41 97.7 58 18 145/86 96 Constitutional: NAD Cardiovascular: RRR Respiratory: CTA Airway Exam Mallampati Score: Class II MO: full ROM: full Anesthesia Pre-op A/P Labs Hematology Test 06/05/19 06:20 White Blood Count 2.8 K/UL (4.8-10.8) L Red Blood Count 4.66 M/UL (4.70-6.10) L Hemoglobin 13.4 G/DL (14.2-18.0) L Hematocrit 41.0 % (42.0-52.0) L Mean Corpuscular Volume 88 FL (80-99) Mean Corpuscular Hemoglobin 28.7 PG (27.0-31.0) Mean Corpuscular Hemoglobin Concent 32.7 G/DL (32.0-36.0) Red Cell Distribution Width 12.2 % (11.6-14.8) Platelet Count 283 K/UL (150-450) Mean Platelet Volume 5.0 FL (6.5-10.1) L Neutrophils (%) (Auto) % (45.0-75.0) Lymphocytes (%) (Auto) % (20.0-45.0) Monocytes (%) (Auto) % (1.0-10.0) Eosinophils (%) (Auto) % (0.0-3.0) Basophils (%) (Auto) % (0.0-2.0) Neutrophils % (Manual) Pending Lymphocytes % (Manual) Pending Platelet Estimate Pending Platelet Morphology Pending Chemistry Test 06/05/19 06:20 Sodium Level 144 MMOL/L (136-145) Potassium Level 3.9 MMOL/L (3.5-5.1) Chloride Level 108 MMOL/L (98-107) H Carbon Dioxide Level 24 MMOL/L (21-32) Anion Gap 12 mmol/L (5-15) Blood Urea Nitrogen 9 mg/dL (7-18) Creatinine 0.9 MG/DL (0.55-1.30) Estimat Glomerular Filtration Rate > 60 mL/min (>60) Glucose Level 115 MG/DL (74-106) H Calcium Level 8.7 MG/DL (8.5-10.1) Studies Pre-op Studies: EKG - sr Risk Assessment & Plan Assessment: ASA III Plan: MAC Status Change Before Surgery: No Pre-Antibiotics Drug: N/A Eleanor Burks MD Jun 05, 2019 07:26
[2019-06-05] MEDS ORDERED: Lidocaine 1% MPF 10mg/ml 5ml ONE (07:29)
[2019-06-05] MEDS ORDERED: Propofol 200mg/20ml IV ONE (07:29)
[2019-06-05] MEDS ORDERED: DiphenhydrAMINE 50mg/ml Inj IVP PRN (07:30)
[2019-06-05] MEDS ORDERED: Pred Forte 1% Opth Susp 1ml LEFT EYE ONE (07:30)
[2019-06-05] MEDS ORDERED: Midazolam 2mg/2ml Inj ONE (07:30)
[2019-06-05] MEDS ORDERED: fentaNYL 100 mcg/2 mL ONE (07:30)
--- NOTE | 2019-06-05 07:43 | Pre-Procedure Note/Attestation ---
Pre-Procedure Note/Attestation Complete Prior to Procedure Planned Procedure: left Procedure Narrative: PPV, reposition of iris captured lens with suture, LEFT eye Indications for Procedure Pre-Operative Diagnosis: Pupillary capture of dislocated IOL LEFT eye Attestation I attest that I discussed the nature of the procedure; its benefits; risks and complications; and alternatives (and the risks and benefits of such alternatives ), prior to the procedure, with the patient (or the patient's legal patient admitting representative). I attest that, if there was a reasonable possibility of needing a blood transfusion, the patient (or the patient's legal patient admitting representative) was given the [facility] standardized written summary, pursuant to the Swapnil Gavino Blood Safety Act ([place] Health and Safety Code # 1645, as amended). I attest that I re-evaluated the patient just prior to the surgery and that there has been no change in the patient's H&P, except as documented below: Bulmaro Chu MD Jun 05, 2019 07:43
[2019-06-05] MEDS ORDERED: HYDROcodone/Acetamin 5/325 tab ORAL PRN (07:45)
[2019-06-05] MEDS ORDERED: NS Irrig 1000ml ONE (08:00)
[2019-06-05] MEDS ORDERED: LR 1000ml ONE (08:00)
[2019-06-05] MEDS ORDERED: Sterile Water Irrig 1000ml IRRIG ONE (08:00)
[2019-06-05] MEDS ORDERED: Acetylcholine Injection (OR) ONE (08:14)
[2019-06-05] MEDS ORDERED: Pilocarpine 1% Opth 15ml Soln BOTH EYES STA (09:00)
[2019-06-05] MEDS ORDERED: Polysporin Opth Oint 3.5gm ONE (09:02)
--- NOTE | 2019-06-05 09:14 | 48 Hour Post Anesthesia Eval ---
Post Anesthesia Evaluation Procedure: Left eye vitrectomy Date of Evaluation: Jun 05, 2019 Airway: patent Nausea: No Vomiting: No Hydration Status: adequate Cardiopulmonary Status: at baseline Mental Status/LOC: patient returned to baseline Post-Anesthesia Complications: 0 Follow-up care needed: ready to discharge Eleanor Burks MD Jun 05, 2019 09:14
--- NOTE | 2019-06-05 09:14 | Immediate Post-Op Evaluation ---
Immediate Post-Op Evalulation Immediate Post-Op Evalulation Procedure: Left eye vitrectomy Date of Evaluation: Jun 05, 2019 Time of Evaluation: 09:16 IV Fluids: 200 Blood Products: 0 Estimated Blood Loss: 0 Urinary Output: 0 Blood Pressure Systolic: 172 Blood Pressure Diastolic: 98 Pulse Rate: 66 Respiratory Rate: 16 O2 Sat by Pulse Oximetry: 95 Temperature (Fahrenheit): 97.5 Pain Score (1-10): 0 Nausea: No Vomiting: No Complications 0 Patient Status: awake, reacts, patent, none Hydration Status: adequate Drug: N/A Eleanor Burks MD Jun 05, 2019 09:14
--- NOTE | 2019-06-05 09:15 | Brief Operative Note ---
Immediate Post Operative Note Operative Note Pre-op Diagnosis: Pupillary capture of dislocated IOL LEFT eye Procedure: PPV, reposition of IOL, stay suture placement OS Post-op Diagnosis: same as pre-op Surgeon: Vlad Anesthesiologist: Dejan Anesthesia: MAC Specimen: none Complications: none Condition: stable Fluids: per anesthesia Estimated Blood Loss: none Drains: none Implant(s) used?: No Bulmaro Chu MD Jun 05, 2019 09:15
--- NOTE | 2019-06-05 16:30 | Operative Note - Dictated ---
DATE OF OPERATION: 06/05/2019 PREOPERATIVE DIAGNOSIS: Iris capture of intraocular lens, left eye. POSTOPERATIVE DIAGNOSIS: Iris capture of intraocular lens, left eye. PROCEDURES: 1. Pars plana vitrectomy. 2. Reposition of the intraocular lens. 3. Replacement posterior pupillary stay sutures, left eye. SURGEON: Bulmaro Chu M.D. NUTRITION SERVICES AIDE: None. ANESTHESIA: Local with sedation. ANESTHESIOLOGIST: JUSTIFICATION FOR SURGERY: This 69-year-old gentleman underwent removal of dislocated intraocular lens, capsular complex several months ago. He had a secondary lens implant placed but in the postoperative period was noted to have a significant nasal capture of the lens by the pupil. A second procedure was done to reposition this defect but it recurred. He was admitted for a technique involving placement of stay sutures anterior to the implant and posterior to the iris to prevent recapture. BRIEF NOTE: The patient was brought to the operative room and placed on the OR table in supine position. After a time-out was performed and agreed upon by the staff, an initial monitoring secured by , retrobulbar, and a Van Lint blocks were given in the standard way. When the blocks taken effect, he was prepped and draped in normal manner. A lid speculum was inserted into the left eye. Using a 23-gauge trocar system, an infusion line was placed inferotemporally. Conjunctiva and tenon's were opened in the form of a limbal peritomy at the 7 to 9 o'clock positions and at the 2 to 4 o'clock positions. The previous placement of sutures for the posterior chamber lens were avoided. Bleeding controlled with cautery. A single flap was made based at the limbus, half thickness sclera at the 1:30 position. A paracentesis was made at the 11 o'clock position and a Healon was used to gently reposition of the iris. Using a double-armed Prolene suture entering from the nasal side, the each arm of the Prolene was placed behind the iris and anterior to the lens and captured on the opposite side using a 27-gauge needle. One of the temporal sites was beneath the flap. The sutures were pulled and noted to gently lie in front of the implant. Both were deemed sufficiently out of the visual axis. The suture was then tied beneath the flap and the ends trimmed. The flap was closed at its tips with a 10-0 nylon sutures with the knots rotated. Miochol was then introduced into the eye and at this time the pupil was noted to close and the Healon was evacuated through the same maneuver. With the pupil now nicely closed, conjunctiva and tenons were pulled up and secured with interrupted 6-0 plain catgut sutures. Topical prednisolone drops, moxifloxacin drops, pilocarpine 1% drops, and [place]-Poly-[place] ointment was instilled. The eye was patched and shielded. The patient taken to recovery room in excellent condition. There were no complications. Please note, the infusion line was removed at the conclusion procedure and the wound was noted to be self-sealing. Bulmaro Chu M.D. DR: Anh JOB#: [id number] CC: Bulmaro Chu M.D.; Fax#: [phone]
--- NOTE | 2019-06-07 15:45 | Pre-op HX & Phy Repo 2 SIG ---
DATE OF ADMISSION: 06/05/2019 REASON FOR EVALUATION: I was asked by Dr. Bulmaro Chu to see 69-year-old male who is going for elective surgery on the left eye. The patient has dislocated intraocular lens, left eye. The patient was evaluated in the outpatient procedure. Chart was reviewed. The patient visited [facility] approximately month or two months ago for surgery. PAST MEDICAL HISTORY AND REVIEW OF SYSTEMS: Remarkable for history of hypertension, seizures absent type of the episode, left episode one year ago, history of hyperlipidemia, and history of colorectal cancer. This information obtained from the old chart and from son at bedside who translates from Greek. PAST SURGICAL HISTORY: Remarkable for left ankle fracture, eye surgery, back surgery, lumbar spine, and colorectal surgery. The patient denies history of stroke or seizures. No diabetes. No heart attack. No peptic ulcer disease or bleeding. No hepatitis. No renal failure. No thyroid problem. ALLERGIES: contrast material. FAMILY HISTORY: Mother from heart attack and father has hypertension and stroke. MEDICATIONS: Present medication, the patient takes amlodipine, gabapentin, atorvastatin, Celebrex, ointment, triamcinolone cream. HABITS: The patient smoked for about 30 years approximately a half a pack a day and stopped more than 10 years ago. No alcohol or street drug use. PHYSICAL EXAMINATION: GENERAL: The patient is alert, well-developed, well-nourished male in his 60s, no acute distress. VITAL SIGNS: Blood pressure 145/86, temperature 97.7, heart rate 58 regular, O2 saturation 96% on room air. The patient's weight 176 pounds, 5 feet 6 inches tall. SKIN: Clear and warm. No open wound. No rashes. LYMPH NODES: Not enlarged. HEENT: Head normocephalic, atraumatic. Ears, clear. Eyes, full description per Dr. Bulmaro Chu. Mouth is clear and moist, partial dentures. NECK: No jugular venous distention. Carotids artery +2. Supple. CHEST: No deformity or asymmetry. LUNGS: Clear to auscultation to percussion. No rales or rhonchi. HEART: Normal sinus rhythm. No ectopy. No murmur. No S3, S4. ABDOMEN: Soft, benign. Liver and spleen not enlarged. No rebound. EXTREMITIES: No edema. No varicose vein. No calf tenderness. GENITOURINARY: CVA nontender. Denies dysuria. LABORATORY AND DIAGNOSTIC DATA: ECG normal sinus rhythm, normal ECG, rate 66 per minute. The patient NPO from last night. Laboratory work pending. IMPRESSION: 1. Dislocated intraocular lens, left eye. 2. Hypertension, controlled. 3. Seizure disorder, controlled. 4. Hyperlipidemia. 5. History of rectal cancer PLAN: Reposition of intra-ocular lens implant suture pars plana per Dr. Bulmaro Chu. CONCLUSION: The patient's vital signs stable. EKG is normal. The patient did not eat or drink from last night. The patient's condition optimized for surgery. Thank you very much, Dr. Chu, for privilege to participate in presurgical care of this interesting patient. Elen Mayer M.D. DR: Suellen JOB#: [id number] CC:
== END 2019-06-05 10:25 | disposition home or self-care (01) ==
LOC: SUR 05:38
DX: T85.22XA Displacement of intraocular lens, initial encounter (principal); I10 Essential (primary) hypertension; Z79.899 Other long term (current) drug therapy; H25.11 Age-related nuclear cataract, right eye; H25.011 Cortical age-related cataract, right eye; X58.XXXA Exposure to other specified factors, initial encounter; Y92.9 Unspecified place or not applicable
CPT/HCPCS: 36415; 66682; 80048; 85007; 85025; J0171; J1100; J2250; J2704; J3010; J3470; J3490; 94003; 94150